=== PATIENT | female | born 1945 | race Asian ===

== ENCOUNTER 2022-08-01 14:46 | Inpatient (IN) | payer BC, MEDICARE ==
[2022-08-01 15:09] LABS: BASOPHILS # (AUTO) 0.1 10^3/uL (0.0-0.1); BASOPHILS % (AUTO) 0.4 %; EOSINOPHILS # (AUTO) 0.1 10^3/uL (0.0-0.7); EOSINOPHILS % (AUTO) 0.7 %; HCT - HEMATOCRIT 45.6 % (37.0-47.0); HGB - HEMOGLOBIN 14.4 g/dL (12.0-16.0); LYMPHOCYTES # (AUTO) 2.4 10^3/uL (1.5-3.5); LYMPHOCYTES % (AUTO) 19.5 %; MEAN CORPUSCULAR HEMOGLOBIN 29.9 pg (27.0-31.0); MEAN CORPUSCULAR HGB CONC 31.6 g/dL (32.0-36.0); MEAN CORPUSCULAR VOLUME 94.6 fL (81.0-99.0); MEAN PLATELET VOLUME 10.9 fL (7.9-10.8); MONOCYTES # (AUTO) 1.1 10^3/uL (0.0-1.0); MONOCYTES % (AUTO) 9.1 %; NEUTROPHILS # (AUTO) 8.4 10^3/uL (1.5-6.6); NEUTROPHILS % (AUTO) 69.8 %; PLT - PLATELET COUNT 164 10^3/uL (130-450); RED BLOOD COUNT 4.82 10^6/uL (4.20-5.40); RED CELL DISTRIBUTION WIDTH 13.5 % (12.0-15.0); WHITE BLOOD COUNT 12.1 x10^3/uL (4.8-10.8)
--- NOTE | 2022-08-01 15:26 | XRAY Report ---
PROCEDURE: Chest 1 View X-Ray INDICATIONS: chest pain TECHNIQUE: One view of the chest was acquired. COMPARISON: None. FINDINGS: Surgical changes and devices: None. Lungs and pleura: No pleural effusions or pneumothorax. Lungs are clear. Bibasilar interstitial pro minence with slight vascularization of flow. Mediastinum: Mediastinal contours appear normal. Heart size is normal. Bones and chest wall: No suspicious bony lesions. Overlying soft tissues appear unremarkable. IMPRESSION: 1.No focal airspace consolidation. 2.Interstitial thickening is nonspecific and can be seen with pulmonary edema, chronic lung disease, or bronchiolitis. Reviewed by: Mark Centeno MD on 08/01/2022 2:25 PM MABLE Approved by: Mark Centeno MD on 08/01/2022 2:25 PM AKJUSTICE Station ID: [id number]
[2022-08-01 15:39] LABS: ALBUMIN 3.7 g/dL (3.2-5.5); ALBUMIN/GLOBULIN RATIO 0.7 (1.0-2.2); BILIRUBIN,TOTAL 0.6 mg/dL (0.2-1.0); CALCIUM 8.6 mg/dL (8.5-10.3); CREATININE 0.9 mg/dL (0.4-1.0)
[2022-08-01] MEDS ORDERED: DEXAMETHASONE 10 MG/ML VIAL IV STA (15:54)
[2022-08-01] MEDS ORDERED: IPRATROPIUM/ALBUTEROL 3 ML NEB INH STA (15:54)
[2022-08-01] MEDS ORDERED: ALBUTEROL NEB 2.5 MG/3 ML INH STA (15:54)
[2022-08-01 16:58] LABS: B. PARAPERTUSSIS- RESP PCR PAN NOT DETECTED; B. PERTUSSIS- RESP PCR PANEL NOT DETECTED; C. PNEUMONIAE- RESP PCR PANEL NOT DETECTED; CORONAVIRUS 229E-RESP PCR NOT DETECTED; CORONAVIRUS HKU1-RESP PCR NOT DETECTED; CORONAVIRUS NL63-RESP PCR NOT DETECTED; CORONAVIRUS OC43-RESP PCR NOT DETECTED; HUMAN METAPNEUMOVIRUS NOT DETECTED; INFLUENZA A- RESP PCR PANEL NOT DETECTED; INFLUENZA B - RESP PCR PANEL NOT DETECTED; M. PNEUMONIAE- RESP PCR PANEL NOT DETECTED; PARAINFLUENZA VIRUS 1 NOT DETECTED; PARAINFLUENZA VIRUS 2 NOT DETECTED; PARAINFLUENZA VIRUS 3 NOT DETECTED; PARAINFLUENZA VIRUS 4 NOT DETECTED; RHINOVIRUS/ENTEROVIRUS NOT DETECTED; RSV- RESP PCR PANEL DETECTED; SARS-CoV-2 -RESP PCR PANEL NOT DETECTED
[2022-08-01] MEDS ORDERED: AZITHROMYCIN 250 MG TABLET PO STA (19:45)
[2022-08-01] MEDS ORDERED: cefTRIAXone 2 GM in SODIUM CHLORIDE 0.9% MINIBAG 100 ML IV STA (19:45)
[2022-08-01] MEDS ORDERED: cefTRIAXone 2 GM VIAL ONE (19:52)
--- NOTE | 2022-08-01 20:08 | ED Physician Documentation ---
PD HPI DYSPNEA - Stated complaint Stated Complaint: SOA - Chief complaint Chief Complaint: Resp - History obtained from History obtained from: Patient - Additional information Additional information: The patient comes to the emergency department chief complaint of difficulty breathing. She states that her symptoms started about 5 days ago and she had a sore throat. The next day she noticed she was coughing. She figured it was "just a cold" until 2 nights ago, she began to notice that she was having difficulty breathing. She states that really became noticeable after she took a shower and that she thought that it would just go away. However, the patient has become increasingly short of breath over the last couple of days and states she was getting worried. She has had a low-grade fever. Patient has not had any specific sick contacts. She is a smoker and has been for many years but is not diagnosed with COPD, though she states she "never goes to the doctor". The patient denies any other complaints at this time. She is not normally on any inhalers or any other respiratory medicines at home. She has no cardiac history. PD PAST MEDICAL HISTORY - Past Medical History Past Medical History: No - Past Surgical History Past Surgical History: No - Present Medications Home Medications: Ambulatory Orders Medication Instructions Recorded Confirmed No Known Home Medications 08/01/22 08/01/22 - Allergies Allergies/Adverse Reactions: Allergies Allergy/AdvReac Type Severity Reaction Status Date / Time No Known Drug Allergies Allergy Verified 08/01/22 14:56 - Social History Does the pt smoke?: Yes Smoking Status: Current every day smoker Does the pt drink ETOH?: Yes Does the pt have substance abuse?: No - POLST Patient has POLST: No PD ED PE NORMAL - Vitals Vital signs reviewed: Yes - General General: Alert and oriented X 3, Well developed/nourished, Other (Tachypneic patient in mild respiratory distress with audible wheezes. She is noted to be smiling and chewing gum.) - HEENT HEENT: Atraumatic, PERRL, EOMI, Moist mucous membranes - Neck Neck: Supple, no meningeal sign - Cardiac Cardiac: No murmur, Strong equal pulses, Other (Tachycardic rate, Regular rhythm) - Respiratory Respiratory: Other (Moderate expiratory wheezes throughout bilateral lung blanc with tight respirations, moderately decreased air movement, and mildly prolonged expiratory phase. Mild crackles in bilateral bases. Tachypnea in 30s to 40) - Abdomen Abdomen: Soft, Non tender, Non distended - Derm Derm: Normal color, Warm and dry, No rash - Extremities Extremities: No deformity, No edema - Neuro Neuro: Alert and oriented X 3 - Psych Psych: Normal mood, Normal affect Results - Vitals Vitals: Vital Signs - 24 hr 08/01/22 08/01/22 08/01/22 14:52 15:00 16:06 Temperature 36.8 C Heart Rate 120 H 106 H 98 Respiratory 18 30 H 24 Rate Blood Pressure 179/80 H 169/94 H O2 Saturation 92 97 If not protocol 2 : Oxygen Flow, liters/minute 08/01/22 08/01/22 08/01/22 16:28 16:54 16:59 Temperature 37.6 C Heart Rate 113 H 118 H Respiratory 27 H 30 H Rate Blood Pressure 147/123 H 159/57 H O2 Saturation 97 96 If not protocol : Oxygen Flow, liters/minute 08/01/22 08/01/22 08/01/22 18:30 18:40 18:57 Temperature 37.2 C Heart Rate 111 H 107 H Respiratory 28 H 25 H Rate Blood Pressure 101/78 101/78 O2 Saturation 98 99 If not protocol 32 35 35 : Oxygen Flow, liters/minute 08/01/22 20:00 Temperature Heart Rate 104 H Respiratory 28 H Rate Blood Pressure 132/80 H O2 Saturation 99 If not protocol 35 : Oxygen Flow, liters/minute Oxygen O2 Source [facility] - Labs Labs: Laboratory Tests 08/01/22 08/01/22 08/01/22 15:00 15:00 15:22 WBC 12.1 H RBC 4.82 Hgb 14.4 Hct 45.6 MCV 94.6 MCH 29.9 MCHC 31.6 L RDW 13.5 Plt Count 164 MPV 10.9 H Neut # (Auto) 8.4 H Lymph # (Auto) 2.4 Ray # (Auto) 1.1 H Eos # (Auto) 0.1 Baso # (Auto) 0.1 Absolute Nucleated RBC 0.00 Nucleated RBC % 0.0 Sodium 131 L Potassium 4.0 Chloride 106 Carbon Dioxide 17 L Anion Gap 8.0 BUN 20 Creatinine 0.9 Estimated GFR (MDRD) 61 L Glucose 135 H Calcium 8.6 Total Bilirubin 0.6 AST 28 ALT 26 Alkaline Phosphatase 69 B-Natriuretic Peptide 52 Total Protein 9.0 H Albumin 3.7 Globulin 5.3 H Albumin/Globulin Ratio 0.7 L Lipase 47 Nasal Adenovirus (PCR) Nasal B. parapertussis DNA (PCR) Nasal Coronavir 229E PCR Nasal Coronavir HKU1 PCR Nasal Coronavir NL63 PCR Nasal Coronavir OC43 PCR Nasal Enterovir/Rhinovir PCR Nasal Influenza B PCR Nasal Influenza A PCR Nasal Parainfluen 1 PCR Nasal Parainfluen 2 PCR Nasal Parainfluen 3 PCR Nasal Parainfluen 4 PCR Nasal RSV (PCR) Nasal B.pertussis DNA PCR Nasal C.pneumoniae (PCR) Nate Human Metapneumo PCR Nasal M.pneumoniae (PCR) Nasal SARS-CoV-2 (PCR) 08/01/22 16:06 WBC RBC Hgb Hct MCV MCH MCHC RDW Plt Count MPV Neut # (Auto) Lymph # (Auto) Ray # (Auto) Eos # (Auto) Baso # (Auto) Absolute Nucleated RBC Nucleated RBC % Sodium Potassium Chloride Carbon Dioxide Anion Gap BUN Creatinine Estimated GFR (MDRD) Glucose Calcium Total Bilirubin AST ALT Alkaline Phosphatase B-Natriuretic Peptide Total Protein Albumin Globulin Albumin/Globulin Ratio Lipase Nasal Adenovirus (PCR) NOT DETECTED Nasal B. parapertussis DNA (PCR) NOT DETECTED Nasal Coronavir 229E PCR NOT DETECTED Nasal Coronavir HKU1 PCR NOT DETECTED Nasal Coronavir NL63 PCR NOT DETECTED Nasal Coronavir OC43 PCR NOT DETECTED Nasal Enterovir/Rhinovir PCR NOT DETECTED Nasal Influenza B PCR NOT DETECTED Nasal Influenza A PCR NOT DETECTED Nasal Parainfluen 1 PCR NOT DETECTED Nasal Parainfluen 2 PCR NOT DETECTED Nasal Parainfluen 3 PCR NOT DETECTED Nasal Parainfluen 4 PCR NOT DETECTED Nasal RSV (PCR) DETECTED A Nasal B.pertussis DNA PCR NOT DETECTED Nasal C.pneumoniae (PCR) NOT DETECTED Nate Human Metapneumo PCR NOT DETECTED Nasal M.pneumoniae (PCR) NOT DETECTED Nasal SARS-CoV-2 (PCR) NOT DETECTED - Rads (name of study) Chest x-ray Relevant Findings:: Final report received, See rad report (No focal airspace consolidation. Interstitial thickening is nonspecific and can be seen with pulmonary edema chronic lung disease or bronchiolitis) PD Medical Decision Making - ED course Complexity details: reviewed old records, reviewed results, re-evaluated patient, considered differential, d/w patient ED course: The patient was evaluated upon arrival by myself in the emergency department. She was given 20 mg of Decadron IV and immediately treated with a DuoNeb and an albuterol nebulizer treatment. This did only mildly improve her symptoms. Her sats were 92% on room air and she was placed on supplemental oxygen at 2 L, which did bring her sats up to the upper 90s. I did work her up with laboratory studies, including a CBC, ER abdominal panel, and respiratory PCR panel. A EKG was also performed. The patient was found to have a mildly elevated white count by my review. Her BNP was 52. Respiratory PCR panel was positive for RSV. The chest x-ray was read as nonspecific interstitial thickening without specific airspace consolidation. The patient was reevaluated Again about an hour and then again another hour after the initial treatments and had not really improved much. As such, I did order warm humidified high flow oxygen for her to see if this would help her respiratory status. She was placed on this and did report feeling quite a bit better, though she was still significantly wheezing and her crackles were more audible now. I ordered Rocephin and Zithromax for her as she likely has some undiagnosed COPD and is at risk for bacterial superinfection, given this and the RSV bronchiolitis. At this point in time, there were no beds available in the hospital and so the patient will board here for now. We will plan to do another breathing treatment later most likely in another dose of Decadron. We will see how she is doing in the morning and determine whether she should be admitted to hospital at that time. The patient was signed out to the [facility] emergency physician, pending final disposition and clinical improvement. - Critical Care Time(min): 40 Comments: Critical care time was necessary, due to high probability of imminent And life- threatening decline, secondary to acute respiratory distress and bronchiolitis, secondary to RSV. Time Includes: Direct patient care, Review records, Reassess patient, Document care, Coordinate care, See progress note Data interpretation: Labs, Pulse ox, CXR, Cardiac output, See progress note Departure - Departure Clinical Impression: RSV bronchiolitis Condition: Serious
[2022-08-02] MEDS ORDERED: ALBUTEROL NEB 2.5 MG/3 ML INH STA (08:34)
[2022-08-02] MEDS ORDERED: DEXAMETHASONE 10 MG/ML VIAL IVP STA (08:34)
[2022-08-02] MEDS ORDERED: BENZONATATE 100 MG CAPSULE PO STA (08:34)
[2022-08-02] MEDS ORDERED: SODIUM CHLORIDE FLUSH 0.9% 10 ML SYRINGE IVP PRN (11:25)
[2022-08-02] MEDS ORDERED: ONDANSETRON 4 MG/2 ML VIAL IVP PRN (11:25)
[2022-08-02] MEDS ORDERED: ONDANSETRON ODT 4 MG TABLET TL PRN (11:25)
[2022-08-02] MEDS ORDERED: oxyCODONE 5 MG TABLET PO PRN (11:25)
[2022-08-02] MEDS ORDERED: ACETAMINOPHEN 325 MG TABLET PO PRN (11:25)
--- NOTE | 2022-08-02 11:50 | HISTORY & PHYSICAL EXAMINATION ---
Chief Complaint - Chief Complaint Chief Complaint: short of breath History of Present Illness - Admitted From Admitted From:: home - History Obtained From Records Reviewed: [facility] History obtained from: patient and Dr. Luciano Exam Limitations: none - History of Present Illness HPI Comment/Other: She presented to the emergency room August 01 at approximately 1400 with increasing shortness of breath since July 30. When she presented to the emergency room her heart rate was 120, she was breathing at 18, and she was 92% on room air. She was diagnosed as RSV bronchitis, and had tremendously increased work of breathing that was new for her. Any exertion resulted in severe tachypnea sometimes up into the 40s. She was put on humidified oxygen if only to help her with her work of breathing not because of hypoxia. Her chest x-ray showed changes of bronchitis but no pneumonia or CHF. Her BNP was 52. White cell count 12.1. Viral panel was positive for RSV not COVID. She stayed in the emergency room from the until today because there were no beds available. This morning they were hoping to discharge her to home but they road tested her and found her to be, again, severely tachypneic with minimal exerti on. Again she did not drop her O2 sats with this. As such I am placing her under observation to do further treatment and work-up. I am worried about PE, or any other other underlying disease that would make her so severely tachypneic without hypoxia. She tells me that this is the sickest she has ever been in her life. She has never been in the hospital for anything but childbirth. She retired at the age of 64. And has never had a physician since then. Prior to that she did have a family practitioner but he retired and then . On review of systems she says that she does have problems with her eyes. She is slowing down mentally but she does not feel like she has memory problems. She has no problems with dysphagia, swallowing. She denies chest pain, angina, edema, orthopnea. She does smoke about 6 cigarettes a day and has done so since about the age of 29. When I tell her she really needs to stop smoking she protest and says "I am 77 years old and there are very few things to enjoy in life so I like to smoke, guillen, and go on cruises". She thinks that the smoking has resulted in a little bit of dyspnea on exertion. She mows the lawn and now it takes a little bit longer and she gets more fatigued by the time she is finished doing it. She has no problems with her GI tract. No constipation, no diarrhea. She has never had a colonoscopy. She has no problems with joint pain. No skin rashes. She denies depression, anxiety, hallucinations. She has never passed out. Never had a seizure. 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 Mom around 72/73 of a stroke. 1 brother at 76 of a stroke and had high blood pressure. 1 sister had diabetes and of complications of diabetes after amputation for peripheral vascular disease. Her 2 children, a boy that is in his 50s, and another son at 47 are completely healthy Living arrangement: At home Living Situation: Alone, Other (Her around 1992) Social History Notes: She worked in [place] for most of her professional life. 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 When she came to this country her [place] was really bad so she really could not get a job and ended up doing housekeeping and cleaning. She started smoking at the age of 29, does 6 cigarettes a day. She drinks 2 drinks here and there but has no history of alcohol abuse. She denies any history of recreational substance abuse. She has been since 1992. She really does love to guillen and do cruise ships and eat the food on cruise ship - Substance History Use: Uses substance without health or social issues: Tobacco - POLST Patient has POLST: No POLST Status: DNR (She does not believe in living to the point of disability. If it is her time to go is her time to go and she does not want CPR, intubation, or any machines keeping her alive) Meds/Allgy - Home Medications Home Medications: Ambulatory Orders Medication Instructions Recorded Confirmed Ibuprofen [Advil] 2 tab PO TID PRN 08/02/22 08/02/22 - Allergies Allergies/Adverse Reactions: Allergies Allergy/AdvReac Type Severity Reaction Status Date / Time naproxen [From Naprosyn] Allergy Rash Verified 08/02/22 13:17 Review of Systems - Constitutional Constitutional: reports: Fatigue, Fever, Chills, Malaise, Poor appetite - Eyes Eyes: reports: Other (Constant tearing the last few days). denies: Pain, Irritation - Ears, Nose & Throat Ears, Nose & Throat: reports: Hearing loss, Nasal obstruction, Nasal congestion, Postnasal drainage (Severe for the last few days), Sore throat, Hoarseness - Cardiovascular Cariovascular: reports: Exertional dyspnea, Decr. exercise tolerance. denies: Irregular heart rate, Palpitations, Chest pain, Edema, Syncope - Respiratory Respiratory: reports: Cough, Sputum production, SOB at rest, SOB with exertion - Gastrointestinal Gastrointestinal: denies: Abdominal pain, Abdominal distention, Constipation, Diarrhea, Black stools, Bloody stools, Coffee grounds emesis, Reflux/heartburn - Genitourinary Genitourinary: denies: Dysuria, Frequency, Urgency - Musculoskeletal Musculoskeletal: denies: Muscle pain, Back pain, Muscle aches, Joint pain - Integumentary Integumentary: denies: Rash - Neurological Neurological: reports: General weakness. denies: Focal weakness, Headache, Dizziness, Memory problems, Pre-existing deficit - Psychiatric Psychiatric: denies: Depression, Anxiety, Suicidal - Endocrine Endocrine: denies: Polyuria, Polydypsia, Polyphagia, Intolerance to cold - Hematologic/Lymphatic Hematologic/Lymphatic: denies: Anemia, Bruising Prior Level of Functionality: She says that she still drives a car, cleans her own house, mows her own lawn, pays her own bills. Exam - Vital Signs Reviewed Vital Signs: Yes Vital Signs: Vital Signs x48h Temp Pulse Resp BP Pulse Ox 08/02/22 09:30 79 18 08/02/22 08:54 67 22 127/54 L 96 08/02/22 07:45 36.1 C L 67 24 125/66 99 08/02/22 07:00 67 23 134/68 H 100 08/02/22 05:57 36.7 C 66 22 134/67 H 100 08/02/22 04:57 36.5 C 64 20 134/81 H 99 - Physical Exam General Appearance: positive: Alert, Moderate distress (Constant congested cough, severe nasal congestion, severe rhinorrhea and coryza) Eyes Bilateral: positive: PERRL, EOMI, Other (Conjunctiva boggy, pale, and she has constant tearing of her eyes) ENT: positive: No signs of dehydration, Pharyngeal erythema (With cobblestoning, and copious postnasal drip). negative: Oral lesions Neck: positive: No JVD, Lymphadenopathy (R), Lymphadenopathy (L). negative: Stiff neck Respiratory: positive: No respiratory distress, Rhonchi (Inspiratory and expiratory musical rhonchi in all lung blanc), Other (Coughing, but not spasmodic and not losing her breath. But if she tries to get up and go to the bathroom, she says that she is gets very short of breath and it takes her 10 minutes to recover) Cardiovascular: positive: Regular rate & rhythm Peripheral Pulses: positive: 1+ Abdomen: positive: Non-tender, No organomegaly, Nml bowel sounds, No distention Skin: positive: Warm, Dry Extremities: positive: Full ROM, No pedal edema Neurologic/Psychiatric: positive: Oriented x3, CN's nml (2-12), Motor nml Conclusion/Plan - Problem List (1) Respiratory distress, acute Conclusion/Plan: She is not hypoxic. Her respiratory distress comes from profound dyspnea exertion when she tries to do anything. Her respiratory distress it really is out of proportion to objective findings. She is not hypoxic. But she does tachycardic and tachypneic. Plan: Supportive care, observation status Steroids for the cough, Robitussin-AC for the cough at night, IV fluids for hydration CT pulmonary angiogram to make sure she is not having a PE (2) RSV bronchiolitis Conclusion/Plan: As above. Mainly supportive care. She is profoundly tachypneic with a tremendous increased work of breathing but she does not drop her O2 sats. I am hoping that she can turn around tonight with simple measures. She is alarmed and was worried that she was going to have to go home on oxygen. I told her that we are just using the oxygen as a form of almost "BiPAP" to support her cough. She has quite a bit of congestion, rhinorrhea, coryza, phlegmy cough with rhonchi. All classic viral symptoms. She received azithromycin and Rocephin in the emergency room. I am not going to be giving her more antibiotics. I will order Robitussin-AC, IV steroids (she is a smoker), albuterol as needed. (3) Tobacco use Conclusion/Plan: She also smokes 6 cigarettes a day. She protest and says "it is not that much". She said that she has few things left her life to enjoy. She loves her food, loves to go on an occasional cruise, loves to guillen, and loves to smoke. Is an old lady, I should not be taking things away from her as she enjoys the last few years of her life. We both start laughing when she says that (4) Does not have primary care provider Conclusion/Plan: After this admission, I told her that she really needs to see somebody and establish yourself in their office. I do not know who has openings in their office. I told her that there are 2 internal medicine practices in [place]. One is Dr. Roxanna Deal's office. The other is Dr. Guallpa's office. I also said that [facility] has providers. She could also go as far as [place]. I would strongly encourage her to establish yourself and at least bring her vaccines up-to-date. - Lab Results Lab results reviewed: Yes Fish Bones: 08/01/22 15:00 08/01/22 15:22 - Diagnostic Imaging Results Diagnostic Imaging Results: positive: Final report reviewed Diagnostic Imaging Results Comments: Chest x-ray has no focal airspace consolidation. Interstitial thickening co mpatible with possible bronchitis - EKG Results EKG Interpreted Independently: No Core Measures - Anticipated LOS I expect patient to be DC'd or transferred within 96 hours.: Yes - DVT/VTE - Prophylaxis VTE/DVT Prophylaxis med ordered at admit?: Yes
[2022-08-02] MEDS ORDERED: SODIUM CHLORIDE 0.9% 1,000 ML IV SCH (12:00)
[2022-08-02] MEDS: ENOXAPARIN 40 MG/0.4 ML SYRINGE SUBQ SCH (13:10)
--- NOTE | 2022-08-02 13:24 | PHARMACY PROGRESS NOTE ---
- Best Possible Medication History Admit Date and Time: 08/02/22 1125 Processed by: Pharmacy Medication History completed: Yes Patient Interview: Completed (taking otc knee supplement but doesn't know the name.) As the person ultimately responsible for medication therapy, providers are able to order a medication from an existing home medication list in [facility] via the "Reconcile Routine" prior to Confirmation of that medication by support group manager. Such practice is discouraged except when the physician, in their clinical judgment, deems that a medical need exists for a medication without regard to previous use.
[2022-08-02] MEDS ORDERED: iohexoL-300 100 ML VIAL ONE (14:13)
--- NOTE | 2022-08-02 15:44 | CT Report ---
PROCEDURE: ANGIO CHEST W/WO INDICATIONS: new sob, severe w RSV CONTRAST: 8ml Omnipaque 300 TECHNIQUE: After the administration of intravenous contrast, 2 mm axial images were acquired from the pulmonary apices to the posterior costophrenic angles during the arterial phase. In addition, 1 mm lung kernel and 5 mm soft tissue kernel reconstructions were performed. 3-dimensional coronal oblique maximum int ensity projection (MIP) reformats, 8 mm axial MIP, and 5 mm coronal and sagittal MPR reformats were t hen performed through the thorax. For radiation dose reduction, the following was used: automated exp osure control, adjustment of mA and/or kV according to patient size. COMPARISON: Chest x-ray 08/02/2022 FINDINGS: Image quality: Excellent. Pulmonary arteries: Pulmonary arteries are normal in size, and demonstrate no intraluminal filling d efects to suggest central pulmonary embolism. Lungs and pleura: Small patchy opacity is noted in the right lower lobe. No pleural effusions or pneu mothorax. Central and peripheral airways are patent. Mediastinum: Heart size is enlarged, without pericardial effusion. No mediastinal or hilar adenopat hy. Thoracic aorta is normal in caliber and enhancement. Esophagus is normal in caliber, with mild hiatal hernia. Bones and chest wall: No suspicious bony lesions. Ribs and thoracic spine appear intact throughout. No axillary or supraclavicular adenopathy. The thyroid is normal in size and there are no incident al findings. Abdomen: Visualized upper abdominal solid organs appear normal in the early arterial phase of enhanc ement. IMPRESSION: Small nodular opacity identified in the right lower lobe. This could be customer development representative of a focus of infection or inflammation, including atypical etiologies such as fungal or mycobacterial. Recommend i nterval follow-up to document resolution. No pulmonary embolism. CLINICAL RECOMMENDATION STATEMENTS: In patients <35 years with an ITN detected on CT, MRI, or extrathyroidal ultrasound, the Committee re commends further evaluation with dedicated thyroid ultrasound if the nodule is "e1 cm and has no susp icious imaging features, and if the patient has normal life expectancy. In patients "e35 years with an ITN detected on CT, MRI, or extrathyroidal ultrasound, the Committee r ecommends further evaluation with dedicated thyroid ultrasound if the nodule is "e1.5 cm and has no s uspicious imaging features, and if the patient has normal life expectancy. (ACR, 2014) Reviewed by: Halley Rowe MD on 08/02/2022 3:43 PM PDT Approved by: Halley Rowe MD on 08/02/2022 3:43 PM PDT Station ID: [id number]
[2022-08-02] MEDS ORDERED: iohexoL-300 100 ML VIAL IVP ONE (15:47)
[2022-08-02] MEDS: SODIUM CHLORIDE FLUSH 0.9% 10 ML SYRINGE IVP SCH (16:03)
[2022-08-02] MEDS ORDERED: guaiFENesin/CODEINE 5 ML UDC PO PRN (22:09)
[2022-08-02] MEDS ORDERED: ALBUTEROL NEB 2.5 MG/3 ML INH PRN (22:10)
[2022-08-02] MEDS: methylPREDNISolone SUCCINATE 40 MG/ML VIAL IVP SCH (22:59)
[2022-08-03] MEDS: SODIUM CHLORIDE FLUSH 0.9% 10 ML SYRINGE IVP SCH ×3 (06:56→17:21)
[2022-08-03] MEDS: methylPREDNISolone SUCCINATE 40 MG/ML VIAL IVP SCH ×2 (06:56→14:44)
[2022-08-03] MEDS: ENOXAPARIN 40 MG/0.4 ML SYRINGE SUBQ SCH (08:27)
[2022-08-03 09:04] LABS: BASOPHILS % (AUTO) 0.2 %; HCT - HEMATOCRIT 41.2 % (37.0-47.0); HGB - HEMOGLOBIN 13.1 g/dL (12.0-16.0); LYMPHOCYTES # (AUTO) 2.6 10^3/uL (1.5-3.5); LYMPHOCYTES % (AUTO) 16.4 %; MEAN CORPUSCULAR HEMOGLOBIN 29.9 pg (27.0-31.0); MEAN CORPUSCULAR HGB CONC 31.8 g/dL (32.0-36.0); MEAN CORPUSCULAR VOLUME 94.1 fL (81.0-99.0); MONOCYTES # (AUTO) 0.3 10^3/uL (0.0-1.0); MONOCYTES % (AUTO) 1.9 %; NEUTROPHILS # (AUTO) 12.6 10^3/uL (1.5-6.6); PLT - PLATELET COUNT 172 10^3/uL (130-450); RED BLOOD COUNT 4.38 10^6/uL (4.20-5.40); RED CELL DISTRIBUTION WIDTH 13.9 % (12.0-15.0); WHITE BLOOD COUNT 15.5 x10^3/uL (4.8-10.8)
[2022-08-03 09:14] LABS: CALCIUM 8.3 mg/dL (8.5-10.3); CREATININE 0.9 mg/dL (0.4-1.0); POTASSIUM 3.8 mmol/L (3.5-5.0)
[2022-08-03 09:38] LABS: SLIDE REVIEW? Indicated
[2022-08-03 09:39] LABS: RBC MORPHOLOGY (MULTIPLE) 2+ ANISOCYTOSIS (NORMAL)
--- NOTE | 2022-08-03 18:37 | PROVIDER PROGRESS NOTE ---
Assessment/Plan - Problem List (1) Acute respiratory failure with hypoxia Assessment/Plan: She was not hypoxic at admission, but she did have tachypneia. Overnight and all of today she has now become hypoxic, she is needing up to 35 L supplemental O2 via high flow humidified oxygen. CT pulmonary angiogram showed no PE Her exam and entire picture are consistent with COPD as the diagnosis however she has rales in the right lower base on exam therefore cannot rule out CHF Plan: We will order DuoNebs scheduled QID, starting today Cont iv Steroids; she received 1 day of Solu-Medrol 40 mg 3 times daily, now I will decrease it to twice daily For her cough, cont Robitussin-AC Awaiting her Echo result and her IV fluids have been discontinued in case this is systolic heart failure adding to the hypoxia, however her BNP was normal at 52 (2) RSV bronchiolitis Conclusion/Plan: She has quite a bit of congestion, rhinorrhea, coryza, phlegmy cough with rhonchi. All classic viral symptoms. Today she admitted she is also getting intermittent diarrhea but has no abdominal pain. She is less tachypneic since O2 suppl was started when she became hypoxic. She was worried that she was going to have to go home on oxygen. I told her she may need it to go home with and may need to start seeing a Regional Sales Associate. She received em[iric azithromycin and Rocephin in the emergency room which was not continued. Plan: Cont symptomatic care Will order stool for C. difficile and if negative, then will order as needed Imodium (3) Tobacco use Conclusion/Plan: She smokes 6 cigarettes a day. She protest and says "it is not that much". She said that she has few things left her life to enjoy. She loves her food, loves to go on an occasional cruise, loves to guillen, and loves to smoke. Is an old lady, I should not be taking things away from her as she enjoys the last few years of her life. Plan: She is not describing nicotine urges, no nicotine patch has been ordered We will order scheduled DuoNebs since COPD is likely to be the cause of this exacerbation and cause of the abnormal chest x-ray, showing interstitial change (4) Does not have primary care provider Conclusion/Plan: After this admission, the admitting MD told her that she really needs to see somebody and establish yourself in their office. We do not know who has openings in their office, but there are 2 internal medicine practices in [place]. One is Dr. Roxanna Deal's office. The other is Dr. Guallpa's office. And there are [facility] has providers. She could also go as far as [place]. Plan: Will strongly encourage her to establish with a PCP and at least bring her vaccines up-to-date. - Current Meds Current Meds: Current Medications Generic Name Dose Route Start Last Admin Trade Name Freq PRN Reason Stop Dose Admin Enoxaparin Sodium 40 mg 08/02/22 09:00 08/03/22 08:27 Enoxaparin 40 Mg/0.4 Ml Syringe SUBQ 40 mg DAILY DASH Administration Guaifenesin/Codeine Phosphate 5 ml 08/02/22 22:09 08/03/22 06:56 Guaifenesin/Codeine 5 Ml Udc PO 5 ml Q6HR PRN Administration Cough Sodium Chloride 10 ml 08/02/22 17:00 08/03/22 17:21 Sodium Chloride Flush 0.9% 10 Ml Syringe IVP 10 ml 0100,0900,1700 DASH Administration - Lab Result Fish Bone Diagrams: 08/03/22 08:50 08/03/22 08:50 - Additional Planning My Orders: My Active Orders 08/03/22 18:34 Nebulizer/MDI Tx. [RC] QID Resp Teach Nebulizer/MDI [RC] .ONCE 08/03/22 19:00 Ipratropium/Albuterol [Duoneb] 3 ml INH RTQID 08/04/22 08:00 methylPREDNISolone SUCCINATE [SOLU-Medrol (40MG VIAL)] 40 mg IVP BID Subjective - Subjective Patient Reports: Shortness of Breath (Slightly improved short of breath, says she can go to the bathroom without wearing her oxygen fourth 30 minutes today compared to 15 minutes yes) Objective Vital Signs: Vital Signs - 24 hr 08/02/22 08/02/22 08/03/22 20:41 21:45 00:30 Temperature 36.5 C 36.4 C L Heart Rate [ 68 66 Brachial] Respiratory 24 22 Rate Blood Pressure 117/57 L 119/55 L [Right Brachial artery] O2 Saturation 100 100 If not protocol 35 35 35 : Oxygen Flow, liters/minute 08/03/22 08/03/22 08/03/22 05:35 07:50 07:56 Temperature 36.6 C 36.4 C L Heart Rate [ 66 63 Brachial] Respiratory 20 20 Rate Blood Pressure 100/54 L 106/67 [Right Brachial artery] O2 Saturation 100 97 If not protocol 35 25 35 : Oxygen Flow, liters/minute 08/03/22 15:46 Temperature 36.4 C L Heart Rate [ 80 Brachial] Respiratory 20 Rate Blood Pressure 122/64 [Right Brachial artery] O2 Saturation 99 If not protocol 35 : Oxygen Flow, liters/minute Oxygen O2 Source [facility] I&O (Last 24 Hrs): Intake and Output Totals x24h 08/01/22 08/02/22 08/03/22 23:59 23:59 23:59 Intake Total 100 1830 912 Balance 100 1830 912 General: Alert, Oriented x3 HEENT: Mucous membr. moist/pink, Other (wearing O2 via [facility]) Neck: Supple Neuro: Alert, Non Focal Cardiovascular: Regular rate, Other (distant heart sounds) Respiratory: Wheezes, Rales (R lower base) Abdomen: Soft, No tenderness Extremities: No clubbing, No edema - Results Results: Laboratory Results WBC 15.5 x10^3/uL (4.8-10.8) H 08/03/22 08:50 RBC 4.38 10^6/uL (4.20-5.40) 08/03/22 08:50 Hgb 13.1 g/dL (12.0-16.0) 08/03/22 08:50 Hct 41.2 % (37.0-47.0) 08/03/22 08:50 MCV 94.1 fL (81.0-99.0) 08/03/22 08:50 MCH 29.9 pg (27.0-31.0) 08/03/22 08:50 MCHC 31.8 g/dL (32.0-36.0) L 08/03/22 08:50 RDW 13.9 % (12.0-15.0) 08/03/22 08:50 Plt Count 172 10^3/uL (130-450) 08/03/22 08:50 MPV 11.0 fL (7.9-10.8) H 08/03/22 08:50 Neut # (Auto) 12.6 10^3/uL (1.5-6.6) H 08/03/22 08:50 Lymph # (Auto) 2.6 10^3/uL (1.5-3.5) 08/03/22 08:50 [place] # (Auto) 0.3 10^3/uL (0.0-1.0) 08/03/22 08:50 Eos # (Auto) 0.0 10^3/uL (0.0-0.7) 08/03/22 08:50 Baso # (Auto) 0.0 10^3/uL (0.0-0.1) 08/03/22 08:50 Absolute Nucleated RBC 0.00 x10^3/uL 08/03/22 08:50 Nucleated RBC % 0.0 /100WBC 08/03/22 08:50 Manual Slide Review Indicated 08/03/22 08:50 RBC Morph Micro Appear 2+ ANISOCYTOSIS (NORMAL) 08/03/22 08:50 Sodium 133 mmol/L (135-145) L 08/03/22 08:50 Potassium 3.8 mmol/L (3.5-5.0) 08/03/22 08:50 Chloride 106 mmol/L (101-111) 08/03/22 08:50 Carbon Dioxide 17 mmol/L (21-32) L 08/03/22 08:50 Anion Gap 10.0 (6-13) 08/03/22 08:50 BUN 30 mg/dL (6-20) H 08/03/22 08:50 Creatinine 0.9 mg/dL (0.4-1.0) 08/03/22 08:50 Estimated GFR (MDRD) 61 (>89) L 08/03/22 08:50 Glucose 183 mg/dL (70-100) H 08/03/22 08:50 Calcium 8.3 mg/dL (8.5-10.3) L 08/03/22 08:50 Total Bilirubin 0.6 mg/dL (0.2-1.0) 08/01/22 15:22 AST 28 IU/L (10-42) 08/01/22 15:22 ALT 26 IU/L (10-60) 08/01/22 15:22 Alkaline Phosphatase 69 IU/L (42-121) 08/01/22 15:22 B-Natriuretic Peptide 52 pg/mL (5-100) 08/01/22 15:00 Total Protein 9.0 g/dL (6.7-8.2) H 08/01/22 15:22 Albumin 3.7 g/dL (3.2-5.5) 08/01/22 15:22 Globulin 5.3 g/dL (2.1-4.2) H 08/01/22 15:22 Albumin/Globulin Ratio 0.7 (1.0-2.2) L 08/01/22 15:22 Lipase 47 U/L (22-51) 08/01/22 15:22 Nasal Adenovirus (PCR) NOT DETECTED 08/01/22 16:06 Nasal B. parapertussis DNA (PCR) NOT DETECTED 08/01/22 16:06 Nasal Coronavir 229E PCR NOT DETECTED 08/01/22 16:06 Nasal Coronavir HKU1 PCR NOT DETECTED 08/01/22 16:06 Nasal Coronavir NL63 PCR NOT DETECTED 08/01/22 16:06 Nasal Coronavir OC43 PCR NOT DETECTED 08/01/22 16:06 Nasal Enterovir/Rhinovir PCR NOT DETECTED 08/01/22 16:06 Nasal Influenza B PCR NOT DETECTED 08/01/22 16:06 Nasal Influenza A PCR NOT DETECTED 08/01/22 16:06 Nasal Parainfluen 1 PCR NOT DETECTED 08/01/22 16:06 Nasal Parainfluen 2 PCR NOT DETECTED 08/01/22 16:06 Nasal Parainfluen 3 PCR NOT DETECTED 08/01/22 16:06 Nasal Parainfluen 4 PCR NOT DETECTED 08/01/22 16:06 Nasal RSV (PCR) DETECTED A 08/01/22 16:06 Nasal B.pertussis DNA PCR NOT DETECTED 08/01/22 16:06 Nasal C.pneumoniae (PCR) NOT DETECTED 08/01/22 16:06 Nate Human Metapneumo PCR NOT DETECTED 08/01/22 16:06 Nasal M.pneumoniae (PCR) NOT DETECTED 08/01/22 16:06 Nasal SARS-CoV-2 (PCR) NOT DETECTED 08/01/22 16:06
[2022-08-03] MEDS ORDERED: LOPERAMIDE 2 MG CAPSULE PO PRN (18:49)
[2022-08-03] MEDS: IPRATROPIUM/ALBUTEROL 3 ML NEB INH SCH (21:42)
[2022-08-04] MEDS: SODIUM CHLORIDE FLUSH 0.9% 10 ML SYRINGE IVP SCH ×3 (01:00→17:14)
[2022-08-04] MEDS: IPRATROPIUM/ALBUTEROL 3 ML NEB INH SCH ×4 (07:32→21:00)
[2022-08-04] MEDS: ENOXAPARIN 40 MG/0.4 ML SYRINGE SUBQ SCH (08:46)
[2022-08-04] MEDS: methylPREDNISolone SUCCINATE 40 MG/ML VIAL IVP SCH ×2 (08:47→21:28)
--- NOTE | 2022-08-04 09:00 | PROVIDER PROGRESS NOTE ---
Assessment/Plan - Problem List (1) Acute respiratory failure with hypoxia Assessment/Plan: She was not hypoxic at presentation in the ER, but she did have tachypnea. Then she became hypoxic, she is needing up to 35 L supplemental O2 via high flow humidified oxygen. CT pulmonary angiogram showed no PE Her exam and entire picture are consistent with COPD as the diagnosis however she has never had PFTs (since she has not seen a provider since age 64). Also, she has rales in the right lower base on exam therefore cannot rule out CHF Plan: We will admit from Observation status to Inpatient status, given the continued hypoxia and need for suppl O2 Cont with DuoNebs scheduled QID, which started yesterday 08/03 Cont iv Steroids; she received 1 day of Solu-Medrol 40 mg 3 times daily, as of today this will be twice daily For her cough, cont Robitussin-AC It would be beneficial if she could get PFTs by RT while here Awaiting her Echo result. Her IV fluids have been discontinued in case this is systolic heart failure adding to the hypoxia, however her BNP was normal at 52 (2) RSV bronchiolitis Conclusion/Plan: She has quite a bit of congestion, rhinorrhea, coryza, phlegmy cough with rhonchi. All classic viral symptoms.On 08/03 she admitted she is also getting intermittent diarrhea but has no abdominal pain. She is less tachypneic since O2 suppl was started when she became hypoxic. She was worried that she was going to have to go home on oxygen. I told her she may need it to go home with and may need to start seeing a Machine Rope Maker. She received empiric azithromycin and Rocephin in the emergency room which was not continued. Plan: Cont symptomatic care Cont scheduled DuoNebs Will order stool for C. difficile and if negative, then will order as needed Imodium (3) Tobacco use Conclusion/Plan: She smokes 6 cigarettes a day. She protest and says "it is not that much". She said that she has few things left her life to enjoy. She loves her food, loves to go on an occasional cruise, loves to guillen, and loves to smoke. Is an old lady, I should not be taking things away from her as she enjoys the last few years of her life. Plan: She is not describing nicotine urges, no nicotine patch has been ordered We will order scheduled DuoNebs since COPD is likely to be the cause of this exacerbation and cause of the abnormal chest x-ray, showing interstitial change (4) Does not have primary care provider Conclusion/Plan: After this admission, the admitting MD told her that she really needs to see somebody and establish yourself in their office. We do not know who has openings in their office, but there are 2 internal medicine practices in [place]. One is Dr. Roxanna Deal's office. The other is Dr. Guallpa's office. And there are [facility] has providers. She could also go as far as [place]. Plan: Will strongly encourage her to establish with a PCP and at least bring her vaccines up-to-date. - Current Meds Current Meds: Current Medications Generic Name Dose Route Start Last Admin Trade Name Freq PRN Reason Stop Dose Admin Albuterol/Ipratropium 3 ml 08/03/22 19:00 08/04/22 07:32 Ipratropium/Albuterol 3 Ml Neb INH 3 ml RTQID DASH Administration Enoxaparin Sodium 40 mg 08/02/22 09:00 08/04/22 08:46 Enoxaparin 40 Mg/0.4 Ml Syringe SUBQ 40 mg DAILY DASH Administration Guaifenesin/Codeine Phosphate 5 ml 08/02/22 22:09 08/03/22 06:56 Guaifenesin/Codeine 5 Ml Udc PO 5 ml Q6HR PRN Administration Cough Methylprednisolone 40 mg 08/04/22 08:00 08/04/22 08:47 Methylprednisolone Succinate 40 Mg/Ml Vial IVP 40 mg BID DASH Administration Sodium Chloride 10 ml 08/02/22 17:00 08/04/22 08:47 Sodium Chloride Flush 0.9% 10 Ml Syringe IVP 10 ml 0100,0900,1700 DASH Administration - Lab Result Fish Bone Diagrams: 08/03/22 08:50 08/03/22 08:50 - Additional Planning My Orders: My Active Orders 08/03/22 18:34 Nebulizer/MDI Tx. [RC] QID Resp Teach Nebulizer/MDI [RC] .ONCE 08/03/22 18:49 Loperamide [Imodium] 2 mg PO QID PRN 08/03/22 19:00 Ipratropium/Albuterol [Duoneb] 3 ml INH RTQID 08/04/22 06:23 C DIFF PCR Stat 08/04/22 08:00 methylPREDNISolone SUCCINATE [SOLU-Medrol (40MG VIAL)] 40 mg IVP BID 08/04/22 08:56 Admit [Admit \\ Transfer \\ Status] [RC] .ONCE Subjective - Subjective Patient Reports: Resting Comfortably, Shortness of Breath (feels better on suppl O2) Objective Vital Signs: Vital Signs - 24 hr 08/03/22 08/03/22 08/03/22 15:46 21:21 21:44 Temperature 36.4 C L 36.5 C Heart Rate 65 Heart Rate [ 80 73 Brachial] Respiratory 20 20 20 Rate Blood Pressure 122/64 134/62 H [Right Brachial artery] O2 Saturation 99 99 If not protocol 35 35 25 : Oxygen Flow, liters/minute 08/03/22 08/03/22 08/04/22 21:48 23:42 04:49 Temperature 36.6 C 36.6 C Heart Rate Heart Rate [ 69 72 Brachial] Respiratory 18 16 Rate Blood Pressure 145/54 H 160/63 H [Right Brachial artery] O2 Saturation 97 97 If not protocol 25 35 35 : Oxygen Flow, liters/minute 08/04/22 08/04/22 07:31 07:33 Temperature 36.5 C Heart Rate 60 Heart Rate [ 61 Brachial] Respiratory 18 16 Rate Blood Pressure 127/64 [Right Brachial artery] O2 Saturation 98 If not protocol 25 25 : Oxygen Flow, liters/minute Oxygen O2 Source [facility] I&O (Last 24 Hrs): Intake and Output Totals x24h 08/02/22 08/03/22 08/04/22 23:59 23:59 23:59 Intake Total 1830 1602 800 Balance 1830 1602 800 General: Alert, Oriented x3 HEENT: Mucous membr. moist/pink, Other (wearing O2 n.c.) Neck: Supple Neuro: Alert, Non Focal Cardiovascular: No murmurs Respiratory: Other (Rales R base, poor air mvm all lung blanc) Abdomen: Soft Extremities: No edema - Results Results: Laboratory Results WBC 15.5 x10^3/uL (4.8-10.8) H 08/03/22 08:50 RBC 4.38 10^6/uL (4.20-5.40) 08/03/22 08:50 Hgb 13.1 g/dL (12.0-16.0) 08/03/22 08:50 Hct 41.2 % (37.0-47.0) 08/03/22 08:50 MCV 94.1 fL (81.0-99.0) 08/03/22 08:50 MCH 29.9 pg (27.0-31.0) 08/03/22 08:50 MCHC 31.8 g/dL (32.0-36.0) L 08/03/22 08:50 RDW 13.9 % (12.0-15.0) 08/03/22 08:50 Plt Count 172 10^3/uL (130-450) 08/03/22 08:50 MPV 11.0 fL (7.9-10.8) H 08/03/22 08:50 Neut # (Auto) 12.6 10^3/uL (1.5-6.6) H 08/03/22 08:50 Lymph # (Auto) 2.6 10^3/uL (1.5-3.5) 08/03/22 08:50 [place] # (Auto) 0.3 10^3/uL (0.0-1.0) 08/03/22 08:50 Eos # (Auto) 0.0 10^3/uL (0.0-0.7) 08/03/22 08:50 Baso # (Auto) 0.0 10^3/uL (0.0-0.1) 08/03/22 08:50 Absolute Nucleated RBC 0.00 x10^3/uL 08/03/22 08:50 Nucleated RBC % 0.0 /100WBC 08/03/22 08:50 Manual Slide Review Indicated 08/03/22 08:50 RBC Morph Micro Appear 2+ ANISOCYTOSIS (NORMAL) 08/03/22 08:50 Sodium 133 mmol/L (135-145) L 08/03/22 08:50 Potassium 3.8 mmol/L (3.5-5.0) 08/03/22 08:50 Chloride 106 mmol/L (101-111) 08/03/22 08:50 Carbon Dioxide 17 mmol/L (21-32) L 08/03/22 08:50 Anion Gap 10.0 (6-13) 08/03/22 08:50 BUN 30 mg/dL (6-20) H 08/03/22 08:50 Creatinine 0.9 mg/dL (0.4-1.0) 08/03/22 08:50 Estimated GFR (MDRD) 61 (>89) L 08/03/22 08:50 Glucose 183 mg/dL (70-100) H 08/03/22 08:50 Calcium 8.3 mg/dL (8.5-10.3) L 08/03/22 08:50 Total Bilirubin 0.6 mg/dL (0.2-1.0) 08/01/22 15:22 AST 28 IU/L (10-42) 08/01/22 15:22 ALT 26 IU/L (10-60) 08/01/22 15:22 Alkaline Phosphatase 69 IU/L (42-121) 08/01/22 15:22 B-Natriuretic Peptide 52 pg/mL (5-100) 08/01/22 15:00 Total Protein 9.0 g/dL (6.7-8.2) H 08/01/22 15:22 Albumin 3.7 g/dL (3.2-5.5) 08/01/22 15:22 Globulin 5.3 g/dL (2.1-4.2) H 08/01/22 15:22 Albumin/Globulin Ratio 0.7 (1.0-2.2) L 08/01/22 15:22 Lipase 47 U/L (22-51) 08/01/22 15:22 Nasal Adenovirus (PCR) NOT DETECTED 08/01/22 16:06 Nasal B. parapertussis DNA (PCR) NOT DETECTED 08/01/22 16:06 Nasal Coronavir 229E PCR NOT DETECTED 08/01/22 16:06 Nasal Coronavir HKU1 PCR NOT DETECTED 08/01/22 16:06 Nasal Coronavir NL63 PCR NOT DETECTED 08/01/22 16:06 Nasal Coronavir OC43 PCR NOT DETECTED 08/01/22 16:06 Nasal Enterovir/Rhinovir PCR NOT DETECTED 08/01/22 16:06 Nasal Influenza B PCR NOT DETECTED 08/01/22 16:06 Nasal Influenza A PCR NOT DETECTED 08/01/22 16:06 Nasal Parainfluen 1 PCR NOT DETECTED 08/01/22 16:06 Nasal Parainfluen 2 PCR NOT DETECTED 08/01/22 16:06 Nasal Parainfluen 3 PCR NOT DETECTED 08/01/22 16:06 Nasal Parainfluen 4 PCR NOT DETECTED 08/01/22 16:06 Nasal RSV (PCR) DETECTED A 08/01/22 16:06 Nasal B.pertussis DNA PCR NOT DETECTED 08/01/22 16:06 Nasal C.pneumoniae (PCR) NOT DETECTED 08/01/22 16:06 Nate Human Metapneumo PCR NOT DETECTED 08/01/22 16:06 Nasal M.pneumoniae (PCR) NOT DETECTED 08/01/22 16:06 Nasal SARS-CoV-2 (PCR) NOT DETECTED 08/01/22 16:06
[2022-08-05] MEDS: SODIUM CHLORIDE FLUSH 0.9% 10 ML SYRINGE IVP SCH ×2 (00:48→08:32)
[2022-08-05 05:36] LABS: BASOPHILS % (AUTO) 0.2 %; HCT - HEMATOCRIT 40.5 % (37.0-47.0); HGB - HEMOGLOBIN 12.8 g/dL (12.0-16.0); LYMPHOCYTES # (AUTO) 1.7 10^3/uL (1.5-3.5); LYMPHOCYTES % (AUTO) 15.5 %; MEAN CORPUSCULAR HEMOGLOBIN 29.8 pg (27.0-31.0); MEAN CORPUSCULAR HGB CONC 31.6 g/dL (32.0-36.0); MEAN CORPUSCULAR VOLUME 94.2 fL (81.0-99.0); MEAN PLATELET VOLUME 10.9 fL (7.9-10.8); MONOCYTES # (AUTO) 0.3 10^3/uL (0.0-1.0); MONOCYTES % (AUTO) 3.1 %; NEUTROPHILS # (AUTO) 8.6 10^3/uL (1.5-6.6); NEUTROPHILS % (AUTO) 77.6 %; PLT - PLATELET COUNT 193 10^3/uL (130-450); RED CELL DISTRIBUTION WIDTH 13.9 % (12.0-15.0); WHITE BLOOD COUNT 11.1 x10^3/uL (4.8-10.8)
[2022-08-05 05:43] LABS: CALCIUM 8.5 mg/dL (8.5-10.3); CREATININE 0.9 mg/dL (0.4-1.0); POTASSIUM 4.4 mmol/L (3.5-5.0)
[2022-08-05] MEDS: IPRATROPIUM/ALBUTEROL 3 ML NEB INH SCH (07:16)
[2022-08-05 08:00] VITALS: BP 123/50
[2022-08-05] MEDS: methylPREDNISolone SUCCINATE 40 MG/ML VIAL IVP SCH (08:32)
[2022-08-05] MEDS: ENOXAPARIN 40 MG/0.4 ML SYRINGE SUBQ SCH (08:32)
--- NOTE | 2022-08-05 14:03 | Discharge Plan ---
Discharge Plan Problem Reviewed?: Yes Disposition: Home, Self Care Condition: Stable Prescriptions: guaiFENesin/CODEINE [Robitussin AC] 5 ml PO Q6HR PRN #1 ea PRN Reason: Cough Ipratropium/Albuterol [Combivent Respimat] 2 puffs IH QID PRN #1 ea PRN Reason: Wheezing Loperamide [Imodium] 2 mg PO QID PRN #10 cap PRN Reason: Diarrhea Tiotropium [place] [Spiriva Respimat] 2 puffs IH DAILY #1 ea Diet: Regular Activity Restrictions: Activity as Tolerated Shower Restrictions: No Driving Restrictions: No Instruction Topics: COPD, Inhaler Metered Dose Dc Health Concerns: You were hospitalized to treat symptoms of respiratory distress and very low oxygen levels. You needed supplemental oxygen. You were also treated with steroids and medicines to open your airways and stop the "whistling" by medicine inhalation. Your symptoms have improved, and the oxygen need has declined. You were tested to see if you have low oxygen levels with activity and you do not, therefore you do not need to be sent home with a new order for home oxygen. You underwent pulmonary function testing which showed that you do have mild emphysema (also called COPD). It was likely caused by your many years of smoking cigarettes. You are being discharged home today and advised to use inhaler treatments, which should be once on a schedule, and another inhaler that you can use more frequently, every 6 hours if needed, if you get wheezing and shortness of breath like this again. The new prescriptions were electronically sent to your [facility] pharmacy. Also prescribed for you were Imodium, to use only in case you still have diarrhea and Robitussin, in case you still have a bad cough. Please keep the appointment to see your new primary care provider, Anna Christopher, Physician Internal Combustion Engineer. That appointment will be on 08/11/2022 at 1 PM at the [facility] [place]. Plan of Treatment: As above. Care Goals: Improvement in symptoms and stabilization are the goals. Assessment: The patient understands and is agreeable with the plan. Additional Instructions or Follow Up instructions: If you have new or worsening symptoms, call ADRIENNE Christopher's office for advice, or come to the ER. No Smoking: If you smoke, Please STOP! Call for help. Follow-up with: Anna Christopher PA [Provider Admit Priv/Credential] -
--- NOTE | 2022-08-05 14:12 | Discharge Plan ---
Discharge Plan Problem Reviewed?: Yes Disposition: Home, Self Care Condition: Stable Prescriptions: guaiFENesin/CODEINE [Robitussin AC] 5 ml PO Q6HR PRN #1 ea PRN Reason: Cough Ipratropium/Albuterol [Combivent Respimat] 2 puffs IH QID PRN #1 ea PRN Reason: Wheezing Loperamide [Imodium] 2 mg PO QID PRN #10 cap PRN Reason: Diarrhea Tiotropium [place] [Spiriva Respimat] 2 puffs IH DAILY #1 ea Activity Restrictions: Activity as Tolerated Shower Restrictions: No Driving Restrictions: No Weight Bearing: Full Weight Instruction Topics: COPD, Inhaler Metered Dose Dc Health Concerns: You were hospitalized to treat symptoms of respiratory distress and very low oxygen levels. You needed supplemental oxygen. You were also treated with steroids and medicines to open your airways and stop the "whistling" by medicine inhalation. Your symptoms have improved, and the oxygen need has declined. You were tested to see if you have low oxygen levels with activity and you do not, therefore you do not need to be sent home with a new order for home oxygen. You underwent pulmonary function testing which showed that you do have mild emphysema (also called COPD). It was likely caused by your many years of smoking cigarettes. You are being discharged home today and advised to use inhaler treatments, which should be once on a schedule, and another inhaler that you can use more frequently, every 6 hours if needed, if you get wheezing and shortness of breath like this again. The new prescriptions were electronically sent to your [facility] pharmacy. Also prescribed for you were Imodium, to use only in case you still have diarrhea and Robitussin, in case you still have a bad cough. Please keep the appointment to see your new primary care provider, Anna Christopher, Physician Software Test Developer. That appointment will be on 08/11/2022 at 1 PM at the [facility] in [place]. Plan of Treatment: As above. Care Goals: Improvement in symptoms and stabilization are the goals. Assessment: The patient understands and is agreeable with the plan. Additional Instructions or Follow Up instructions: If you have new or worsening symptoms, call ADRIENNE Christopher's office for advice, or come to the ER. No Smoking: If you smoke, Please STOP! Call for help. Follow-up with: Anna Christopher PA [Provider Admit Priv/Credential] -
--- NOTE | 2022-08-05 14:13 | DISCHARGE SUMMARY ---
Discharge Summary Admit Date: 08/02/22 Discharge Date: 08/05/22 Discharging Provider: Alysha Martínez MD Primary Care Provider: ADRIENNE Latham Condition at Discharge: Stable Discharge Disposition: 01 Home, Self Care - HPI History of Present Illness: This 77 y/o female presented to the emergency room August 01 at approximately 1400 with increasing shortness of breath since July 30. When she presented to the emergency room her heart rate was 120, she was breathing at 18, and she was 92% on room air. She was diagnosed as RSV bronchitis, and had tremendously increased work of breathing that was new for her. Any exertion resulted in severe tachypnea sometimes up into the 40s. She was put on humidified oxygen if only to help her with her work of breathing not because of hypoxia. Her chest x-ray showed changes of bronchitis but no pneumonia or CHF. Her BNP was 52. White cell count 12.1. Viral panel was positive for RSV not COVID. She stayed in the emergency room from the until today () because there were no beds available. This morning they were hoping to discharge her to home but they road tested her and found her to be, again, severely tachypneic with minimal exertion. Again she did not drop her O2 sats with this. As such I am placing her under Observation to do further treatment and work-up. I am worried about PE, or any other other underlying disease that would make her so severely tachypneic without hypoxia. She tells me that this is the sickest she has ever been in her life. She has never been in the hospital for anything but childbirth. She retired at the age of 64. And has never had a physician since then. Prior to that she did have a family practitioner but he retired and then . On review of systems she says that she does have problems with her eyes. She is slowing down mentally but she does not feel like she has memory problems. She has no problems with dysphagia, swallowing. She denies chest pain, angina, edema, orthopnea. She does smoke about 6 cigarettes a day and has done so since about the age of 29. When I tell her she really needs to stop smoking she protest and says "I am 77 years old and there are very few things to enjoy in life so I like to smoke, guillen, and go on cruises". She thinks that the smoking has resulted in a little bit of dyspnea on exertion. She mows the lawn and now it takes a little bit longer and she gets more fatigued by the time she is finished doing it. She has no problems with her GI tract. No constipation, no diarrhea. She has never had a colonoscopy. She has no problems with joint pain. No skin rashes. She denies depression, anxiety, hallucinations. She has never passed out. Never had a seizure. - HOSPITAL COURSE Hospital Course: (1) Acute respiratory failure with hypoxia She was not hypoxic at presentation in the ER, but she did have tachypnea. Soon after, she became hypoxic, and needed up to 35 L supplemental O2 via high flow humidified oxygen. CT pulmonary angiogram showed no PE. Her exam and entire picture were consistent with a COPD exacerbation, however she had never had PFTs (since she has not seen a provider since age 64). Also, she had rales in the right base, therefore an Echo was ordered, but no Echo service was available the days she was hospitalized. She was treated with DuoNebs scheduled QID, iv steroids and Robitussin-AC. She needed to be admitted from Observation status to Inpatient status, given the continued hypoxia and need for suppl O2, which s lowly improved. On the day of discharge she underwent an oximetry walk test and sis not need home O2 ordeed. She was discharged home on new inhalers. (2) RSV bronchiolitis She had quite a bit of congestion, rhinorrhea, coryza, phlegmy cough with rhonchi. All classic viral symptoms. On 08/03 she admitted she was also having intermittent diarrhea but had no abdominal pain. C diff was neg and she got Imodium prn. Eventually she was less tachypneic, because supplemental O2 was started when she became hypoxic. She received empiric azithromycin and Rocephin in the emergency room which was not continued. (3) Tobacco use She smokes 6 cigarettes a day. She protest and says "it is not that much". She said that she has few things left her life to enjoy. She loves her food, loves to go on an occasional cruise, loves to guillen, and loves to smoke. She did not describe nicotine urges, no nicotine patch was ordered. She got scheduled DuoNebs, since COPD was likely to be the cause of this exacerbation and cause of the abnormal chest x-ray, showing interstitial changes. Smoking cessation was advised. (4) Does not have primary care provider We arranged for her to see a new PCP: ADRIENNE Latham on 08/11/22 at 1300. - ALLERGIES Allergies/Adverse Reactions: Allergies Allergy/AdvReac Type Severity Reaction Status Date / Time naproxen [From Naprosyn] Allergy Rash Verified 08/02/22 13:17 - MEDICATIONS Home Medications: Ambulatory Orders Medication Instructions Recorded Confirmed Ibuprofen [Advil] 2 tab PO TID PRN 08/02/22 08/02/22 Ipratropium/Albuterol [Combivent 2 puffs IH QID PRN #1 ea 08/05/22 Respimat] Loperamide [Imodium] 2 mg PO QID PRN #10 cap 08/05/22 Tiotropium [place] [Spiriva 2 puffs IH DAILY #1 ea 08/05/22 Respimat] guaiFENesin/CODEINE [Robitussin AC] 5 ml PO Q6H PRN #50 ml 08/05/22 - PHYSICAL EXAM AT DISCHARGE General Appearance: positive: No acute distress, Alert, Other (Appears younger than her age) Eyes Bilateral: positive: Normal inspection, EOMI ENT: positive: ENT inspection nml, No signs of dehydration Neck: positive: Nml inspection, No JVD Respiratory: positive: Chest non-tender, No respiratory distress, Breath sounds nml Cardiovascular: positive: Regular rate & rhythm, No murmur Abdomen: positive: Non-tender, Nml bowel sounds, No distention Skin: positive: Warm, Dry Extremities: positive: Non-tender Neurologic/Psychiatric: positive: Oriented x3, Motor nml - LABS Result Diagrams: 08/05/22 05:14 08/05/22 05:14 - DIAGNOSTIC IMAGING Diagnostic Imaging Results: Final report reviewed - FOLLOW UP Follow Up: Keep appointment with new PCP on 08/11/22. - TIME SPENT Time Spent in Discharge (Minutes): 30
--- NOTE | 2022-08-08 21:02 | ED Physician Documentation ---
ED Addendum - Addendum Addendum: 08/08/22 20:[address] Donis at end of her shift; please refer to her note for complete history and physical. Patient was held in the emergency department overnight with a plan of admitting to [facility] once a bed becomes available, which is anticipated to likely happen l ater in the morning. During patient's overnight observation, she was trialed off of supplemental oxygen, but would rapidly desaturate to mid/upper 80s percent pulse ox on room air associated with increasing dyspnea and thus the supplemental oxygen was resumed. Care of patient turned over to oncoming ED physician (Dr. Luciano) at end of my shift pending disposition.
--- NOTE | 2022-08-14 21:55 | ED Physician Documentation ---
ED Addendum - Addendum Addendum: 08/14/22 21:51 Picked up care of the patient on change of shift. She is apparently improved compared to initial presentation. Has RSV bronhiolitis, with history of lung reactive airways as well. PCR panel is positive for RSV. at my exam, she is still tachypneic at 25-30 breaths/min, but otherwise no retractions nor exxcursions. sats are adequate at [id number] on now lowered to 4 lpm nC. she is still having enough trouble breathing and had had high oxygen demand that she needs further close treatment. I talked with hospitalist once beds available in the morning and the hospitalist will admit the patient. Discposition; admission to med/surg unit in stable condition. Diagnoses: RSV bronchiolotis hypoxia reactive airway disease.
== END 2022-08-05 15:10 | disposition home or self-care (01) | DRG 189 ==
LOC: ED 14:46 → MS2 08-02 11:25 → OBSVTOIN 08-04 08:56
PROVIDERS: ADMIT Specialist; ATTEND Internal Medicine
DX: J96.01 Acute respiratory failure with hypoxia (principal); Z20.822 Contact with and (suspected) exposure to COVID-19; R06.03 Acute respiratory distress; J21.0 Acute bronchiolitis due to respiratory syncytial virus; J43.9 Emphysema, unspecified; F17.210 Nicotine dependence, cigarettes, uncomplicated; Z66 Do not resuscitate; E78.00 Pure hypercholesterolemia, unspecified; R19.7 Diarrhea, unspecified
CPT/HCPCS: 36415; 71045; 71275; 80048; 80053; 83690; 83880; 85025; 87493; 87633; 93005; 94010; 94640; 94761; 96365; 96372; 96375; 96376; 99285; 99291; A9270; G0378; J1650; Q9967

== ENCOUNTER 2022-08-26 13:04 | Outpatient (CLI) | payer MEDICARE ==
[2022-08-26 18:00] LABS: BASOPHILS # (AUTO) 0.1 10^3/uL (0.0-0.1); EOSINOPHILS # (AUTO) 0.2 10^3/uL (0.0-0.7); EOSINOPHILS % (AUTO) 3.2 %; HCT - HEMATOCRIT 42.8 % (37.0-47.0); HGB - HEMOGLOBIN 13.1 g/dL (12.0-16.0); LYMPHOCYTES % (AUTO) 39.2 %; MEAN CORPUSCULAR HEMOGLOBIN 29.9 pg (27.0-31.0); MEAN CORPUSCULAR HGB CONC 30.6 g/dL (32.0-36.0); MEAN CORPUSCULAR VOLUME 97.7 fL (81.0-99.0); MEAN PLATELET VOLUME 10.4 fL (7.9-10.8); MONOCYTES # (AUTO) 0.7 10^3/uL (0.0-1.0); MONOCYTES % (AUTO) 12.9 %; NEUTROPHILS # (AUTO) 2.1 10^3/uL (1.5-6.6); NEUTROPHILS % (AUTO) 42.3 %; PLT - PLATELET COUNT 262 10^3/uL (130-450); RED BLOOD COUNT 4.38 10^6/uL (4.20-5.40); WHITE BLOOD COUNT 5.1 x10^3/uL (4.8-10.8)
[2022-08-26 18:21] LABS: ALBUMIN 3.7 g/dL (3.2-5.5); ALBUMIN/GLOBULIN RATIO 0.9 (1.0-2.2); ALKALINE PHOSPHATASE 76 IU/L (42-121); ALT ALANINE AMINOTRANSFERASE 39 IU/L (10-60); AST ASPARTATE AMINOTRANSFERASE 31 IU/L (10-42); BILIRUBIN,TOTAL 0.6 mg/dL (0.2-1.0); BUN - BLOOD UREA NITROGEN 17 mg/dL (6-20); CALCIUM 8.8 mg/dL (8.5-10.3); CARBON DIOXIDE - CO2 24 mmol/L (21-32); CHLORIDE 110 mmol/L (101-111); CHOL/HDL RATIO 7.4 (<4.4); CHOLESTEROL 267 mg/dL; CREATININE 0.9 mg/dL (0.4-1.0); GFR - MDRD 61 (>89); GLUCOSE 105 mg/dL (70-100); HDL CHOLESTEROL 36 mg/dL; LDL CHOLESTEROL,CALCULATED 163 mg/dL; LDL/HDL RATIO 4.5 (<4.4); POTASSIUM 3.9 mmol/L (3.5-5.0); SODIUM 138 mmol/L (135-145); TRIGLYCERIDES 339 mg/dL; VLDL CHOLESTEROL 68 mg/dL
[2022-08-26 18:26] LABS: THYROID STIMULATING HORMONE 1.32 uIU/mL (0.34-5.60)
[2022-08-26 19:59] LABS: ESTIMATED AVERAGE GLUCOSE 134 mg/dL (70-100); HEMOGLOBIN A1c% 6.3 % (4.27-6.07)
== END 2022-08-26 13:05 | disposition home or self-care (01) ==
LOC: LAB.N 13:04
PROVIDERS: ATTEND Physician Assistant
DX: R73.01 Impaired fasting glucose (principal); J21.0 Acute bronchiolitis due to respiratory syncytial virus; J96.01 Acute respiratory failure with hypoxia
CPT/HCPCS: 36415; 80053; 80061; 83036; 83721; 84443; 85025

== ENCOUNTER 2023-02-14 13:06 | Outpatient (CLI) | payer MEDICARE ==
[2023-02-14 18:26] LABS: ALBUMIN/GLOBULIN RATIO 0.9 (1.0-2.2); ALKALINE PHOSPHATASE 69 IU/L (42-121); ALT ALANINE AMINOTRANSFERASE 32 IU/L (10-60); AST ASPARTATE AMINOTRANSFERASE 28 IU/L (10-42); BILIRUBIN,TOTAL 0.6 mg/dL (0.2-1.0); BUN - BLOOD UREA NITROGEN 20 mg/dL (6-20); CALCIUM 9.5 mg/dL (8.5-10.3); CARBON DIOXIDE - CO2 24 mmol/L (21-32); CHLORIDE 107 mmol/L (101-111); CHOL/HDL RATIO 5.8 (<4.4); CHOLESTEROL 192 mg/dL; CREATININE 0.9 mg/dL (0.6-1.3); GFR - MDRD 60 (>89); GLUCOSE 107 mg/dL (74-104); HDL CHOLESTEROL 33 mg/dL; LDL CHOLESTEROL,CALCULATED 99 mg/dL; POTASSIUM 4.2 mmol/L (3.5-4.5); SODIUM 137 mmol/L (135-145); TOTAL PROTEIN 8.5 g/dL (6.4-8.9); TRIGLYCERIDES 302 mg/dL (48-352); VLDL CHOLESTEROL 60 mg/dL
[2023-02-14 20:54] LABS: ESTIMATED AVERAGE GLUCOSE 134 mg/dL (70-100); HEMOGLOBIN A1c% 6.3 % (4.27-6.07)
== END 2023-02-14 13:07 | disposition home or self-care (01) ==
LOC: LAB.N 13:06
PROVIDERS: ATTEND Physician Assistant
DX: E78.1 Pure hyperglyceridemia (principal); R73.01 Impaired fasting glucose; E78.5 Hyperlipidemia, unspecified
CPT/HCPCS: 36415; 80053; 80061; 83036; 83721

== ENCOUNTER 2023-08-25 13:36 | Outpatient (CLI) | payer MEDICARE ==
[2023-08-25 17:48] LABS: BASOPHILS # (AUTO) 0.1 10^3/uL (0.0-0.1); BASOPHILS % (AUTO) 0.7 %; EOSINOPHILS # (AUTO) 0.2 10^3/uL (0.0-0.7); EOSINOPHILS % (AUTO) 1.7 %; HCT - HEMATOCRIT 45.7 % (37.0-47.0); HGB - HEMOGLOBIN 14.6 g/dL (12.0-16.0); LYMPHOCYTES # (AUTO) 2.7 10^3/uL (1.5-3.5); LYMPHOCYTES % (AUTO) 25.9 %; MEAN CORPUSCULAR HEMOGLOBIN 30.8 pg (27.0-31.0); MEAN CORPUSCULAR HGB CONC 31.9 g/dL (32.0-36.0); MEAN CORPUSCULAR VOLUME 96.4 fL (81.0-99.0); MEAN PLATELET VOLUME 11.1 fL (7.9-10.8); MONOCYTES % (AUTO) 9.3 %; NEUTROPHILS # (AUTO) 6.4 10^3/uL (1.5-6.6); NEUTROPHILS % (AUTO) 61.9 %; PLT - PLATELET COUNT 239 10^3/uL (130-450); RED BLOOD COUNT 4.74 10^6/uL (4.20-5.40); WHITE BLOOD COUNT 10.3 x10^3/uL (4.8-10.8)
[2023-08-25 18:04] LABS: ALBUMIN 3.9 g/dL (3.2-5.5); ALBUMIN/GLOBULIN RATIO 0.7 (1.0-2.2); ALKALINE PHOSPHATASE 91 IU/L (42-121); ALT ALANINE AMINOTRANSFERASE 33 IU/L (10-60); AST ASPARTATE AMINOTRANSFERASE 35 IU/L (10-42); BILIRUBIN,TOTAL 0.5 mg/dL (0.2-1.0); BUN - BLOOD UREA NITROGEN 29 mg/dL (6-20); CALCIUM 10.4 mg/dL (8.5-10.3); CARBON DIOXIDE - CO2 23 mmol/L (21-32); CHLORIDE 106 mmol/L (101-111); CHOLESTEROL 246 mg/dL; GFR - MDRD 53 (>89); GLUCOSE 106 mg/dL (74-104); HDL CHOLESTEROL 35 mg/dL; LDL CHOLESTEROL,CALCULATED 161 mg/dL; LDL/HDL RATIO 4.6 (<4.4); POTASSIUM 4.5 mmol/L (3.5-4.5); SODIUM 136 mmol/L (135-145); TOTAL PROTEIN 9.4 g/dL (6.4-8.9); TRIGLYCERIDES 249 mg/dL (48-352); VLDL CHOLESTEROL 50 mg/dL
[2023-08-25 18:12] LABS: THYROID STIMULATING HORMONE 1.61 uIU/mL (0.34-5.60)
[2023-08-25 21:14] LABS: ESTIMATED AVERAGE GLUCOSE 134 mg/dL (70-100); HEMOGLOBIN A1c% 6.3 % (4.27-6.07)
== END 2023-08-25 13:37 | disposition home or self-care (01) ==
LOC: LAB.N 13:36
PROVIDERS: ATTEND Physician Assistant
DX: R73.01 Impaired fasting glucose (principal); E78.5 Hyperlipidemia, unspecified; E78.1 Pure hyperglyceridemia
CPT/HCPCS: 36415; 80053; 80061; 83036; 83721; 84443; 85025